=== PATIENT | female | born 1970 | race Caucasian/White ===

== ENCOUNTER 2017-02-19 14:35 | Outpatient (CLI) ==
[2017-02-19 15:17] LABS: BASOPHILS # (AUTO) 0.1 K/uL (0-0.2); EOSINOPHILS % (AUTO) 0.8 % (0.0-7.0); HEMATOCRIT 36.5 % (37.0-47.0); HEMOGLOBIN 12.9 g/dl (12.0-16.0); IMMATURE GRANULOCYTE % (AUTO) 0.2 % (0.0-5.0); LYMPHOCYTES # (AUTO) 1.2 K/uL (0.60-3.4); LYMPHOCYTES % (AUTO) 24.6 (10.0-50.0); MEAN CORPUSCULAR HEMOGLOBIN 31.4 pg (27.0-31.0); MEAN CORPUSCULAR HGB CONC 35.3 (31.8-35.4); MEAN CORPUSCULAR VOLUME 88.8 fl (81.0-99.0); MONOCYTES # (AUTO) 0.4 K/uL (0.4-2.0); MONOCYTES % (AUTO) 8.1 (0-10); NEUTROPHILS # (AUTO) 3.2 K/ul (2.0-6.9); NEUTROPHILS % (AUTO) 65.3; PLATELET COUNT 107 10^3/uL (140-440); RED BLOOD COUNT 4.11 10^6/ul (4.20-5.40); WHITE BLOOD COUNT 4.84 K/ul (4.6-10.2)
[2017-02-19 15:55] LABS: ALBUMIN 3.9 g/dL (3.4-5.0); ALBUMIN/GLOBULIN RATIO 1.11; BILIRUBIN,TOTAL 0.4 mg/dL (0.00-1.20); BUN/CREATININE RATIO 23.45; CALCIUM 9.6 mg/dL (8.2-10.2); CHOL/HDL RATIO 3.3 (4.5-5.5); CREATININE 0.81 mg/dL (0.60-1.30); TOTAL PROTEIN 7.4 g/dL (6.4-8.2)
[2017-02-24 08:02] LABS: HIV ANTIBODIES QUALITATIVE NON REACTIVE (Nonreactive)
[2017-04-20 12:00] VITALS: BMI 27.3
== END 2017-02-19 14:36 | disposition home or self-care (01) ==
LOC: LAB 14:35
PROVIDERS: ATTEND Nurse Practitioner Family
DX: E11.36 Type 2 diabetes mellitus with diabetic cataract (principal); E75.6 Lipid storage disorder, unspecified; N92.6 Irregular menstruation, unspecified; Z11.4 Encounter for screening for human immunodeficiency virus [HIV]; Z11.59 Encounter for screening for other viral diseases
CPT/HCPCS: 36415; 80053; 80061; 80074; 83036; 84439; 84443; 85025; 86701

== ENCOUNTER 2017-06-12 13:19 | Outpatient (CLI) ==
[2017-04-20 12:00] VITALS: BMI 27.3
[2017-06-12 13:36] LABS: BASOPHILS % (AUTO) 0.9 % (0.0-3.0); EOSINOPHILS # (AUTO) 0.1 K/ul (0.0-0.7); EOSINOPHILS % (AUTO) 2.1 % (0.0-7.0); HEMATOCRIT 31.7 % (37.0-47.0); HEMOGLOBIN 11.6 g/dl (12.0-16.0); IMMATURE GRANULOCYTE % (AUTO) 0.2 % (0.0-5.0); LYMPHOCYTES # (AUTO) 1.1 K/uL (0.60-3.4); LYMPHOCYTES % (AUTO) 26.1 (10.0-50.0); MEAN CORPUSCULAR HGB CONC 36.6 (31.8-35.4); MEAN CORPUSCULAR VOLUME 87.6 fl (81.0-99.0); MONOCYTES # (AUTO) 0.4 K/uL (0.4-2.0); MONOCYTES % (AUTO) 8.7 (0-10); NEUTROPHILS # (AUTO) 2.7 K/ul (2.0-6.9); PLATELET COUNT 113 10^3/uL (140-440); RED BLOOD COUNT 3.62 10^6/ul (4.20-5.40); WHITE BLOOD COUNT 4.36 K/ul (4.6-10.2)
[2017-06-12 13:58] LABS: ALBUMIN 3.4 g/dL (3.4-5.0); ANION GAP 14.7; BILIRUBIN,TOTAL 0.46 mg/dL (0.00-1.20); BUN/CREATININE RATIO 17.91; CALCIUM 9.7 mg/dL (8.2-10.2); CHOL/HDL RATIO 3.7 (4.5-5.5); CREATININE 0.67 mg/dL (0.60-1.30); POTASSIUM 3.7 mmol/L (3.5-5.10); TOTAL PROTEIN 6.8 g/dL (6.4-8.2)
== END 2017-06-12 13:20 | disposition home or self-care (01) ==
LOC: LAB 13:19
PROVIDERS: ATTEND Nurse Practitioner Family
DX: E75.6 Lipid storage disorder, unspecified (principal); E11.36 Type 2 diabetes mellitus with diabetic cataract
CPT/HCPCS: 36415; 80053; 80061; 83036; 85025

== ENCOUNTER 2017-07-14 16:07 | Outpatient (CLI) ==
[2017-04-20 12:00] VITALS: BMI 27.3
[2017-07-14 16:23] LABS: BASOPHILS % (AUTO) 1.1 % (0.0-3.0); EOSINOPHILS # (AUTO) 0.1 K/ul (0.0-0.7); EOSINOPHILS % (AUTO) 1.7 % (0.0-7.0); HEMOGLOBIN 12.6 g/dl (12.0-16.0); LYMPHOCYTES % (AUTO) 26.3 (10.0-50.0); MEAN CORPUSCULAR HEMOGLOBIN 31.2 pg (27.0-31.0); MEAN CORPUSCULAR VOLUME 89.1 fl (81.0-99.0); MONOCYTES # (AUTO) 0.3 K/uL (0.4-2.0); MONOCYTES % (AUTO) 9.1 (0-10); NEUTROPHILS # (AUTO) 2.2 K/ul (2.0-6.9); NEUTROPHILS % (AUTO) 61.8; PLATELET COUNT 130 10^3/uL (140-440); RED BLOOD COUNT 4.04 10^6/ul (4.20-5.40); WHITE BLOOD COUNT 3.61 K/ul (4.6-10.2)
[2017-07-14 16:25] LABS: IMMATURE RETIC FRACTION 13.5; RETICULOCYTE % 1.95 %
[2017-07-14 17:00] LABS: FERRITIN 67.49 ng/mL (4.63-204.00)
== END 2017-07-14 16:08 | disposition home or self-care (01) ==
LOC: LAB 16:07
PROVIDERS: ATTEND Nurse Practitioner Family
DX: D64.9 Anemia, unspecified (principal); L02.91 Cutaneous abscess, unspecified
CPT/HCPCS: 36415; 82607; 82728; 83540; 83550; 84466; 85025; 85045; 87070

== ENCOUNTER 2017-09-09 16:11 | Outpatient (CLI) ==
[2017-04-20 12:00] VITALS: BMI 27.3
[2017-09-09 16:18] LABS: BASOPHILS # (AUTO) 0.1 K/uL (0-0.2); BASOPHILS % (AUTO) 1.4 % (0.0-3.0); EOSINOPHILS # (AUTO) 0.1 K/ul (0.0-0.7); EOSINOPHILS % (AUTO) 1.8 % (0.0-7.0); HEMATOCRIT 38.2 % (37.0-47.0); HEMOGLOBIN 13.2 g/dl (12.0-16.0); IMMATURE GRANULOCYTE % (AUTO) 0.2 % (0.0-5.0); LYMPHOCYTES # (AUTO) 1.4 K/uL (0.60-3.4); LYMPHOCYTES % (AUTO) 32.5 (10.0-50.0); MEAN CORPUSCULAR HEMOGLOBIN 30.8 pg (27.0-31.0); MEAN CORPUSCULAR HGB CONC 34.6 (31.8-35.4); MEAN CORPUSCULAR VOLUME 89.3 fl (81.0-99.0); MONOCYTES # (AUTO) 0.4 K/uL (0.4-2.0); MONOCYTES % (AUTO) 10.1 (0-10); NEUTROPHILS # (AUTO) 2.4 K/ul (2.0-6.9); PLATELET COUNT 142 10^3/uL (140-440); RED BLOOD COUNT 4.28 10^6/ul (4.20-5.40); WHITE BLOOD COUNT 4.37 K/ul (4.6-10.2)
[2017-09-09 16:31] LABS: ALBUMIN 3.4 g/dL (3.4-5.0); ALBUMIN/GLOBULIN RATIO 0.85; ANION GAP 15.5; BILIRUBIN,TOTAL 0.48 mg/dL (0.00-1.20); BUN/CREATININE RATIO 21.42; CALCIUM 9.7 mg/dL (8.2-10.2); CHOL/HDL RATIO 4.3 (4.5-5.5); CREATININE 0.7 mg/dL (0.60-1.30); POTASSIUM 3.5 mmol/L (3.5-5.10); TOTAL PROTEIN 7.4 g/dL (6.4-8.2)
== END 2017-09-09 16:12 | disposition home or self-care (01) ==
LOC: LAB 16:11
PROVIDERS: ATTEND Nurse Practitioner Family
DX: E11.36 Type 2 diabetes mellitus with diabetic cataract (principal); E75.6 Lipid storage disorder, unspecified; D64.9 Anemia, unspecified
CPT/HCPCS: 36415; 80053; 80061; 83036; 85025

== ENCOUNTER 2018-01-11 13:29 | Outpatient (CLI) ==
[2017-04-20 12:00] VITALS: BMI 27.3
== END 2018-01-11 13:30 | disposition home or self-care (01) ==
LOC: LAB 13:29
PROVIDERS: ATTEND Nurse Practitioner Family
DX: D64.9 Anemia, unspecified (principal); E11.36 Type 2 diabetes mellitus with diabetic cataract; E75.6 Lipid storage disorder, unspecified
CPT/HCPCS: 36415; 80053; 80061; 83036; 85025

== ENCOUNTER 2018-05-03 11:06 | Outpatient (CLI) ==
[2017-04-20 12:00] VITALS: BMI 27.3
== END 2018-05-03 11:07 | disposition home or self-care (01) ==
LOC: LAB 11:06
PROVIDERS: ATTEND Nurse Practitioner Family
DX: D64.9 Anemia, unspecified (principal); E11.36 Type 2 diabetes mellitus with diabetic cataract; E75.6 Lipid storage disorder, unspecified
CPT/HCPCS: 36415; 80053; 80061; 85025

== ENCOUNTER 2019-05-10 09:15 | Outpatient (CLI) ==
[2017-04-20 12:00] VITALS: BMI 27.3
== END 2019-05-10 09:16 | disposition home or self-care (01) ==
LOC: LAB 09:15
PROVIDERS: ATTEND Nurse Practitioner Family
DX: E11.36 Type 2 diabetes mellitus with diabetic cataract (principal); D64.9 Anemia, unspecified
CPT/HCPCS: 36415; 80053; 83036; 85025

== ENCOUNTER 2022-09-15 05:30 | Inpatient (IN) ==
[2022-09-15] MEDS ORDERED: REGLAN IVP ONE (05:34)
[2022-09-15] MEDS ORDERED: PROTONIX IV IVP STA (05:34)
[2022-09-15] MEDS ORDERED: SODIUM CHLORIDE 1,000 ML IV STA ×2 (05:34→07:42)
--- NOTE | 2022-09-15 05:44 | ED.PDOC ---
General ED Provider: Dr. AFRICA FRIED Chief Complaint: Nausea/Vomiting Stated Complaint: Patient is a 52 year old female who has a history of DM non insulin depended. who comes to the ER with nausea and vomiting with some diarrhea since yesterday. Has had 4 episodes of vomiting today. she is is legall y blind. She was given Zofran by EMS now feels better. Time Seen by Provider: 09/15/22 05:32 Mode of Arrival: Ambulance Information Source: Patient and EMT Primary Care Provider: PAMELLA TORREZ APRN, FNP- Nursing and Triage Documentation Reviewed and Agree: Yes Does patient meet sepsis criteria?: No System Inflammatory Response Syndrome: Not Applicable Sepsis Protocol: For patient's 13 years and over: Temp is 96.8 and below OR 101 and greater Pulse >90 BPM Resp >20/minute Acutely Altered Mental Status Are patient's symptoms suggestive of a new infection, such as: -Pneumonia -Skin, Soft Tissue -Endocarditis -UTI -Bone, Joint Infection -Implantable Device -Acute Abdominal Infection -Wound Infection -Meningitis -Blood Stream Catheter Infection -Unknown GI Complaint Exam Vomiting/Diarrhea Complaint/Exam Onset/Duration: 1 day Episodes of Vomiting over last 24 Hours: 4 Episodes of Diarrhea Over Last 24 Hours: 5 Initial Severity: Severe Current Severity: Moderate Character of Vomiting: Reports Non-bilious Character of Diarrhea: Reports Watery Aggravating: Reports Food Alleviating: Reports None Associated Signs and Symptoms: Denies Dizziness, Light-headedness, Melena, Hematemesis, Fever, Abdominal pain or Cramping Related History: Reports Similar episode Recent Positive Test: No Use of Oral Contraceptives: No Use of Depoprovera: No Compliant With Contraceptive Use: No Surgical Obstruction Risk Factors: Reports None Related Surgical History: Reports None Abdominal Findings: Present None Kussmaul Respirations Present: No Differential Diagnoses: Bowel Obstruction and Viral Gastroenteritis Review of Systems Review Of Systems Constitutional: Reports No symptoms GI: Reports Nausea and Vomiting Neurological: Reports Anxiety All Other Systems: Reviewed and Negative [facility] Medical History (Updated 09/15/22 @ 08:52 by AFRICA FRIED MD) Abnormal TSH Amenorrhea Diabetes mellitus GERD (gastroesophageal reflux disease) Has poorly balanced diet Hyperlipidemia Hypertriglyceridemia Legally blind Mammogram declined Non compliance with medical treatment Patient refused evaluation or treatment Subcutaneous nodule of left upper extremity Family History FATHER Lung cancer Mother No problems noted. Grandfather/Grandmother Diabetes Other Cancer Social History Alcohol intake: never Substance use type: does not use Surgical History (Updated 07/09/20 @ 08:50 by [facility] [place]) History of section Female Reproductive History Menstrual Hx Hysterectomy: Yes Hx Tubal Ligation: Yes Physical Exam Physical Exam Appearance: Reports Ill-appearing Ill-appearing: Moderate Pain Distress: None Eyes: Reports EOMI and Other (non reative pupils, Blind ) ENT: Reports Nose normal and Oropharynx normal Neck: Supple Respiratory: Reports Airway patent and Breath sounds clear Cardiovascular: Reports RRR, Pulses normal and No rub GI/: Reports Soft, Nontender, No masses and Bowel sounds normal Musculoskeletal: Reports Normal strength, ROM intact and No edema Skin: Reports Warm, Dry and Normal color Neurological: Reports Motor intact, Alert and Oriented Psychiatric: Reports Anxious Critical Care Note Critical Care Note Total Critical Care Time (mins): 0 Course Course Hematology/Chemistry: 09/15/22 05:44 09/15/22 05:44 Orders, Labs, Meds: Lab Review 09/15/22 09/15/22 09/15/22 05:44 05:44 05:44 WBC 9.00 RBC 4.98 Hgb 15.5 Hct 43.5 MCV 87.3 MCH 31.1 H MCHC 35.6 H RDW Coeff of Jolene 12.6 Plt Count 151 Immature Gran % (Auto) 0.4 Neut % (Auto) 88.5 H Lymph % (Auto) 8.1 L [place] % (Auto) 2.7 Eos % (Auto) 0.0 Baso % (Auto) 0.3 Neut # (Auto) 8.0 H Lymph # (Auto) 0.7 [place] # (Auto) 0.2 L Eos # (Auto) 0.0 Baso # (Auto) 0.0 Immature Gran # (Auto) 0.0 Puncture Site Base Excess O2 Saturation ABG pH ABG pCO2 ABG pO2 ABG HCO3 ABG Total CO2 Oliverio Test Hemoglobin Oxyhemoglobin Carboxyhemoglobin Total Hemoglobin FiO2 % Sodium 138.5 Potassium 4.03 Chloride 103.6 Carbon Dioxide 16.0 L Anion Gap 22.93 BUN 13.8 Creatinine 0.49 L Estimated GFR (MDRD) 132.00 BUN/Creatinine Ratio 28.16 Glucose 496.4 H Hemoglobin A1c Calcium 9.37 Total Bilirubin 0.69 AST 18.5 ALT 13.2 Alkaline Phosphatase 161.2 H Total Protein 7.51 Albumin 4.30 Globulin 3.21 Albumin/Globulin Ratio 1.33 Amylase 49.1 Lipase 29.8 Urine Color Urine Clarity Urine pH Ur Specific [place] Urine Protein Urine Glucose (UA) Urine Ketones Urine Blood Urine Nitrite Urine Bilirubin Urine Urobilinogen Ur Leukocyte Esterase Urine Microscopic RBC Ur Squamous Epith Cells Urine Mucus Acetone, Qual Trace 09/15/22 09/15/22 09/15/22 05:44 05:45 07:30 WBC RBC Hgb Hct MCV MCH MCHC RDW Coeff of Jolene Plt Count Immature Gran % (Auto) Neut % (Auto) Lymph % (Auto) [place] % (Auto) Eos % (Auto) Baso % (Auto) Neut # (Auto) Lymph # (Auto) [place] # (Auto) Eos # (Auto) Baso # (Auto) Immature Gran # (Auto) Puncture Site Rb Base Excess -9.3 L O2 Saturation 99.6 H ABG pH 7.44 ABG pCO2 22.0 L ABG pO2 175.0 H ABG HCO3 14.9 L ABG Total CO2 15.6 L Oliverio Test + Hemoglobin 1.5 Oxyhemoglobin 95.2 Carboxyhemoglobin 2.1 H Total Hemoglobin 16.3 FiO2 % 21.0 Sodium Potassium Chloride Carbon Dioxide Anion Gap BUN Creatinine Estimated GFR (MDRD) BUN/Creatinine Ratio Glucose Hemoglobin A1c 13.23 H Calcium Total Bilirubin AST ALT Alkaline Phosphatase Total Protein Albumin Globulin Albumin/Globulin Ratio Amylase Lipase Urine Color Yellow Urine Clarity Clear Urine pH 5.5 Ur Specific [place] 1.025 Urine Protein 1+ H Urine Glucose (UA) 2+ H Urine Ketones 4+ Urine Blood Trace-intact H Urine Nitrite Negative Urine Bilirubin Negative Urine Urobilinogen 0.2 Ur Leukocyte Esterase Negative Urine Microscopic RBC 0-2 Ur Squamous Epith Cells Not present Urine Mucus Trace Acetone, Qual Orders Category Date Time Status ABG DRAW REQUEST Stat CARDIO 09/15/22 05:44 Completed ACTIVITY .Up With Assistance CARE 09/15/22 08:43 Active BLOOD GLUCOSE MONITORING (MED/SURG) Q1HR CARE 09/15/22 08:32 Active DIABETIC TEACHING ONCE CARE 09/15/22 08:43 Active INTAKE & OUTPUT Q8HR CARE 09/15/22 08:43 Active REMINDER: BMP Q4hrs Until Anion Gap < 12 Q4HR CARE 09/15/22 08:43 Active REMINDER: BMP Q8HRS Once Anion Gap <12 PRN CARE 09/15/22 08:43 Active REMINDER: Call Provider if K < 3.3 meq/L PRN CARE 09/15/22 08:43 Active REMINDER: Hold IV Fluids with KCL PRN CARE 09/15/22 08:43 Active REMINDER: Print DKA Nursing Protocol PRN CARE 09/15/22 08:43 Active TELEMETRY MONITORING TELE CARE 09/15/22 08:43 Active VITAL SIGNS Q4HR CARE 09/15/22 08:43 Active NOTHING BY MOUTH DIETARY 09/15/22 Lunch Ordered CONSULT LOW VOLTAGE ELECTRICIAN ONCE LOW VOLTAGE ELECTRICIAN 09/15/22 08:43 Active ED IV/MEDIPORT/POWERPORT .ONCE EMERGENCY 09/15/22 05:34 Active ABG COOX Stat LAB 09/15/22 05:45 Completed ACETONE, QUALITATIVE Stat LAB 09/15/22 05:44 Completed AMYLASE Stat LAB 09/15/22 05:44 Completed AMYLASE Stat LAB 09/15/22 08:43 Ordered CBC W/ AUTO DIFF Stat LAB 09/15/22 05:44 Completed COMPREHENSIVE METABOLIC PANEL Stat LAB 09/15/22 05:44 Completed DRUG SCREEN, URINE, RAPID Stat LAB 09/15/22 08:43 Uncollected HEMOGLOBIN A1C Stat LAB 09/15/22 05:44 Completed LIPASE Stat LAB 09/15/22 05:44 Completed LIPASE Stat LAB 09/15/22 08:43 Ordered MAGNESIUM Stat LAB 09/15/22 08:43 Ordered PHOSPHORUS Stat LAB 09/15/22 08:43 Ordered SARS COV-2 RNA RAPID GILMA Stat LAB 09/15/22 08:35 Received URINALYSIS C & S IF INDICATED Stat LAB 09/15/22 07:30 Completed 0.9 % Sodium Chloride [Saline Flush] MEDS 09/15/22 05:34 Active 1 syr IVF PRN PRN Insulin Regular in 0.9 % NaCl [Myxredlin 100 Unit/100 MEDS 09/15/22 09:00 Active ml Bag] 100 unit in 100 ml IV TITRATION Insulin Regular, Human [Humulin R] MEDS 09/15/22 08:16 Discontinued 8 unit IVP ONCE STA Metoclopramide HCl [Reglan] MEDS 09/15/22 11:00 Ordered 10 mg IVP ACHS Metoclopramide HCl [Reglan] MEDS 09/15/22 05:34 Discontinued 10 mg IVP ONCE ONE POTASSIUM CHLORIDE/D5-0.45NACL @ 125 MLS/HR(1000ml) MEDS 09/15/22 08:50 Ordered Potassium Chloride/D5-0.45NACL [D5%-1/2Ns-KCl 10 Meq/l IV Marichuy] 1,000 ml IV 125 mls/hr Pantoprazole Sodium [Protonix IV] MEDS 09/15/22 05:34 Discontinued 40 mg IVP ONCE STA Sodium Chloride 0.9% [Sodium Chloride] 1,000 ml MEDS 09/15/22 05:34 Discontinu ed IV BOLUS Sodium Chloride 0.9% [Sodium Chloride] 1,000 ml MEDS 09/15/22 07:42 Discontinued IV BOLUS Sodium Chloride 0.9% [Sodium Chloride] 1,000 ml MEDS 09/15/22 08:43 Active IV BOLUS Medications Generic Name Dose Route Start Last Admin Trade Name Freq PRN Reason Stop Dose Admin INSULIN REGULAR IN 0.9 % NACL 100 unit in 100 mls @ 8.33 mls/hr 09/15/22 09:00 Myxredlin 100 Unit/100 Ml Bag IV TITRATION KENAN Protocol 0.1 UNIT/KG/HR Sodium Chloride 1,000 mls @ 1,000 mls/hr 09/15/22 08:43 Sodium Chloride IV 09/15/22 09:42 BOLUS ONE Metoclopramide HCl 10 mg 09/15/22 11:00 Metoclopramide Hcl 10 Mg/2 Ml IVP ACHS KENAN Sodium Chloride 1 syr 09/15/22 05:34 0.9% Sodium Chloride 10 Ml Disp.Syrin IVF PRN PRN To flush IV Discontinued Medications Generic Name Dose Route Start Last Admin Trade Name Freq PRN Reason Stop Dose Admin Sodium Chloride 1,000 mls @ 1,000 mls/hr 09/15/22 05:34 09/15/22 06:03 Sodium Chloride IV 09/15/22 06:33 1,000 mls/hr BOLUS STA Administration Sodium Chloride 1,000 mls @ 1,000 mls/hr 09/15/22 07:42 09/15/22 07:57 Sodium Chloride IV 09/15/22 08:41 1,000 mls/hr BOLUS STA Administration Insulin Human Regular 8 unit 09/15/22 08:16 09/15/22 08:35 Insulin Regular, Human 100 Unit/Ml (3ml) Vial 0.1 unit/kg (8 unit) 09/15/22 08:17 8 unit IVP Administration ONCE STA Metoclopramide HCl 10 mg 09/15/22 05:34 09/15/22 06:15 Metoclopramide Hcl 10 Mg/2 Ml IVP 09/15/22 05:35 10 mg ONCE ONE Administration Pantoprazole Sodium 40 mg 09/15/22 05:34 09/15/22 06:14 Pantoprazole Sodium 40 Mg Vial IVP 09/15/22 05:35 40 mg ONCE STA Administration Vital Signs: Temp Pulse Resp BP Pulse Ox 09/15/22 05:30 97.4 F L 106 H 18 136/88 96 Discharge Plan Discharge Patient Disposition: ADMITTED INPATIENT Discharge Problem: DKA (diabetic ketoacidosis), Gastroenteritis, Nausea, Vomiting Did you review [place] EXECUTOR OF ESTATE?: Not Applicable ED Provider: AFRICA FRIED Condition: Fair Physician Progress Note: []
[2022-09-15 05:51] LABS: BASOPHILS % (AUTO) 0.3 % (0.0-3.0); HEMATOCRIT 43.5 % (37.0-47.0); HEMOGLOBIN 15.5 g/dl (12.0-16.0); IMMATURE GRANULOCYTE % (AUTO) 0.4 % (0.0-5.0); LYMPHOCYTES # (AUTO) 0.7 K/uL (0.60-3.4); LYMPHOCYTES % (AUTO) 8.1 (10.0-50.0); MEAN CORPUSCULAR HEMOGLOBIN 31.1 pg (27.0-31.0); MEAN CORPUSCULAR HGB CONC 35.6 (31.8-35.4); MEAN CORPUSCULAR VOLUME 87.3 fl (81.0-99.0); MONOCYTES # (AUTO) 0.2 K/uL (0.4-2.0); MONOCYTES % (AUTO) 2.7 (0-10); NEUTROPHILS % (AUTO) 88.5 % (42.2-75.2); PLATELET COUNT 151 10^3/uL (140-440); RDW COEFFICIENT OF VARIATION 12.6 % (11.6-14.8); RED BLOOD COUNT 4.98 10^6/ul (4.20-5.40)
[2022-09-15 05:56] LABS: ABG O2 HGB 95.2 % (95-100); ABG PH 7.44 (7.35-7.45); BEecf -9.3 (-2.0-3.0); COHb 2.1 (0.5-1.5); HCO3 14.9 (21-28); MetHb 1.5 (0-1.5); TCO2 15.6 (19-24); sO2 99.6 % (94-98); tHb 16.3 g/dl (11.7-17.4)
[2022-09-15 06:02] LABS: ALANINE AMINOTRANSFERASE 13.2 U/L (0-35); ALBUMIN 4.3 g/dL (3.5-5.0); ALKALINE PHOSPHATASE 161.2 U/L (38-126); AMYLASE 49.1 U/L (30-110); ASPARTATE AMINO TRANSFERASE 18.5 U/L (14-36); BILIRUBIN,TOTAL 0.69 mg/dL (0.2-1.3); BLOOD UREA NITROGEN 13.8 mg/dL (7-17); CALCIUM 9.37 mg/dL (8.4-10.2); CREATININE 0.49 mg/dL (0.60-1.30); GLUCOSE 496.4 mg/dL (74-106); LIPASE 29.8 U/L (23-300); POTASSIUM 4.03 mmol/L (3.5-5.1); SODIUM 138.5 mmol/L (134.5-145); TOTAL PROTEIN 7.51 g/dL (6.3-8.2)
[2022-09-15 06:04] LABS: CHLORIDE 103.6 mmol/L (98-107)
[2022-09-15 07:38] LABS: BILIRUBIN,URINE Negative (NEGATIVE); CLARITY,URINE Clear (CLEAR); COLOR,URINE Yellow (YELLOW); GLUCOSE, URINE (UA) 2+ (NEGATIVE); KETONES,URINE 4+ (NEGATIVE); LEUKOCYTE ESTERASE ,URINE Negative (NEGATIVE); NITRITE,URINE Negative (NEGATIVE); PH,URINE 5.5 (5-9); PROTEIN,URINE 1+ (NEGATIVE); URINE, BLOOD Trace-intact (NEGATIVE); UROBILINOGEN,URINE 0.2 (0.2)
[2022-09-15 07:51] LABS: SQUAMOUS EPITHELIAL CELL,UR NOT PRESENT (0-5)
[2022-09-15 07:52] LABS: MUCUS,URINE TRACE (NOT PRESENT); URINE RBC, MICROSCOPIC 0-2 (0-2)
[2022-09-15] MEDS ORDERED: HUMULIN R IVP STA (08:16)
[2022-09-15] MEDS ORDERED: SODIUM CHLORIDE 1,000 ML IV ONE (08:43)
[2022-09-15] MEDS ORDERED: D5%-1/2NS-KCL 10 MEQ/L IV SOL 1,000 ML IV STA (08:50)
[2022-09-15] MEDS: MYXREDLIN 100 UNIT/100 ML BAG 100 UNIT/100 ML PLAST..BAG IV SCH (08:54)
[2022-09-15 09:00] LABS: AMYLASE 55.7 U/L (30-110); LIPASE 27.8 U/L (23-300); MAGNESIUM 1.75 mg/dL (1.6-2.3); PHOSPHORUS 4.95 mg/dL (2.5-4.5)
[2022-09-15 09:46] LABS: AMPHETAMINE SCREEN,URINE NEGATIVE (NEGATIVE); BARBITURATE SCREEN,URINE NEGATIVE (NEGATIVE); BENZODIAZEPINES SCREEN,URINE NEGATIVE (NEGATIVE); CANNABINOID SCREEN,URINE NEGATIVE (NEGATIVE); COCAIN SCREEN,URINE NEGATIVE (NEGATIVE); METHADONE URINE SCREEN NEGATIVE (NEGATIVE); METHAMPHETAMINES SCREEN,URINE NEGATIVE (NEGATIVE); OPIATE SCREEN,URINE NEGATIVE (NEGATIVE); OXYCODONE URINE SCREEN NEGATIVE (NEGATIVE); PHENCYCLIDINE SCREEN,URINE NEGATIVE (NEGATIVE); PROPOXYPHENE URINE SCREEN NEGATIVE (NEGATIVE); TRICYCLIC ANTIDEPRESSANTS URIN NEGATIVE (NEGATIVE)
[2022-09-15 11:02] VITALS: BMI 28.0
[2022-09-15] MEDS: HUMULIN R SUBCUT PRN ×3 (11:52→16:32)
[2022-09-15] MEDS: REGLAN IVP SCH ×3 (13:05→21:13)
[2022-09-15] MEDS: LANTUS SUBCUT SCH (16:40)
[2022-09-16 05:41] LABS: ALBUMIN 3.44 g/dL (3.5-5.0); ALKALINE PHOSPHATASE 109.7 U/L (38-126); ASPARTATE AMINO TRANSFERASE 14.4 U/L (14-36); BILIRUBIN,TOTAL 0.53 mg/dL (0.2-1.3); BLOOD UREA NITROGEN 7.7 mg/dL (7-17); CALCIUM 8.81 mg/dL (8.4-10.2); CARBON DIOXIDE 22.5 mmol/L (22-30.0); CHLORIDE 104.9 mmol/L (98-107); CREATININE 0.46 mg/dL (0.60-1.30); GLUCOSE 255.5 mg/dL (74-106); POTASSIUM 3.61 mmol/L (3.5-5.1); SODIUM 138.3 mmol/L (134.5-145); TOTAL PROTEIN 6.15 g/dL (6.3-8.2)
[2022-09-16] MEDS: REGLAN IVP SCH ×2 (06:18→13:04)
[2022-09-16] MEDS: HUMULIN R SUBCUT PRN ×2 (06:49→11:41)
[2022-09-16] MEDS ORDERED: GLUCOPHAGE PO SCH (08:30)
[2022-09-16] MEDS: LANTUS SUBCUT SCH (09:23)
[2022-09-16] MEDS: MYXREDLIN 100 UNIT/100 ML BAG 100 UNIT/100 ML PLAST..BAG IV SCH (10:06)
[2022-09-16 14:23] VITALS: BP 138/86; TEMP 98.2
--- NOTE | 2022-09-17 08:02 | PCM.DC ---
Final Diagnosis: DKA Gastroenteritis Poorly controlled Diabetes Physical Exam Appearance: Well-appearing Ill-appearing: None Pain Distress: None Eyes: Other (legaly blind ) ENT: Nose normal Neck: Not Examined Respiratory: Airway patent, Breath sounds clear and Breath sounds equal Cardiovascular: RRR, Pulses normal, No rub and No murmur GI/: Soft, Nontender, No masses and Bowel sounds normal Musculoskeletal: Normal strength, ROM intact and No edema Skin: Warm, Dry and Normal color Neurological: Motor intact Psychiatric: Affect appropriate and Mood appropriate (1) DKA (diabetic ketoacidosis): Status: Acute Code(s): E11.10 - Type 2 diabetes mellitus with ketoacidosis without coma SNOMED Code(s): 786627957 Qualifiers: Diabetes mellitus complication detail: without coma Diabetes mellitus type: type 2 Qualified Code(s): E11.10 - Type 2 diabetes mellitus with ketoacidosis without coma (2) Gastroenteritis: Status: Acute Code(s): K52.9 - Noninfective gastroenteritis and colitis, unspecified SNOMED Code(s): 34042993 (3) Nausea: Status: Acute Code(s): R11.0 - Nausea SNOMED Code(s): 226029725 (4) Vomiting: Status: Acute Code(s): R11.10 - Vomiting, unspecified SNOMED Code(s): 224283011 Reason for Hospitalization: DKA, Gastroenteritis, Nausea and Voting. Prognosis/Condition at Discharge: Condition stable with blood glucose fair, Diarrhea resolved and tolerated Metformin. Medications at Discharge: Metformin 500 mg Lab/Diagnostics: Comprehensive Lab Summary 09/15/22 09/15/22 09/15/22 Range/Units 05:44 05:44 05:44 WBC 9.00 (4.6-10.2) K/ul RBC 4.98 (4.20-5.40) 10^6/ul Hgb 15.5 (12.0-16.0) g/dl Hct 43.5 (37.0-47.0) % MCV 87.3 (81.0-99.0) fl MCH 31.1 H (27.0-31.0) pg MCHC 35.6 H (31.8-35.4) RDW Coeff of Jolene 12.6 (11.6-14.8) % Plt Count 151 (140-440) 10^3/uL Immature Gran % (Auto) 0.4 (0.0-5.0) % Neut % (Auto) 88.5 H (42.2-75.2) % Lymph % (Auto) 8.1 L (10.0-50.0) [place] % (Auto) 2.7 (0-10) Eos % (Auto) 0.0 (0.0-7.0) % Baso % (Auto) 0.3 (0.0-3.0) % Neut # (Auto) 8.0 H (2.0-6.9) K/ul Lymph # (Auto) 0.7 (0.60-3.4) K/uL [place] # (Auto) 0.2 L (0.4-2.0) K/uL Eos # (Auto) 0.0 (0.0-0.7) K/ul Baso # (Auto) 0.0 (0-0.2) K/uL Immature Gran # (Auto) 0.0 (0.0-1.0) Puncture Site Base Excess (-2.0-3.0) O2 Saturation (94-98) % ABG pH (7.35-7.45) ABG pCO2 (35-45) mmHg ABG pO2 (85-100) mmHg ABG HCO3 (21-28) ABG Total CO2 (19-24) Oliverio Test Hemoglobin (0-1.5) Oxyhemoglobin (95-100) % Carboxyhemoglobin (0.5-1.5) Total Hemoglobin (11.7-17.4) g/dl FiO2 % % Sodium 138.5 (134.5-145) mmol/L Potassium 4.03 (3.5-5.1) mmol/L Chloride 103.6 (98-107) mmol/L Carbon Dioxide 16.0 L (22-30.0) mmol/L Anion Gap 22.93 BUN 13.8 (7-17) mg/dL Creatinine 0.49 L (0.60-1.30) mg/dL Estimated GFR (MDRD) 132.00 mL/min BUN/Creatinine Ratio 28.16 Glucose 496.4 H (74-106) mg/dL Hemoglobin A1c (4.0-6.0) Calcium 9.37 (8.4-10.2) mg/dL Phosphorus (2.5-4.5) mg/dL Magnesium (1.6-2.3) mg/dL Total Bilirubin 0.69 (0.2-1.3) mg/dL AST 18.5 (14-36) U/L ALT 13.2 (0-35) U/L Alkaline Phosphatase 161.2 H (38-126) U/L Total Protein 7.51 (6.3-8.2) g/dL Albumin 4.30 (3.5-5.0) g/dL Globulin 3.21 Albumin/Globulin Ratio 1.33 Amylase 49.1 (30-110) U/L Lipase 29.8 (23-300) U/L Urine Color (YELLOW) Urine Clarity (CLEAR) Urine pH (5-9) Ur Specific [place] (1.005-1.030) Urine Protein (NEGATIVE) Urine Glucose (UA) (NEGATIVE) Urine Ketones (NEGATIVE) Urine Blood (NEGATIVE) Urine Nitrite (NEGATIVE) Urine Bilirubin (NEGATIVE) Urine Urobilinogen (0.2) Ur Leukocyte Esterase (NEGATIVE) Urine Microscopic RBC (0-2) Ur Squamous Epith Cells (0-5) Urine Mucus (NOT PRESENT) Urine Opiates Screen (NEGATIVE) Ur Oxycodone Screen (NEGATIVE) Urine Methadone Screen (NEGATIVE) Ur Propoxyphene Screen (NEGATIVE) Ur Barbiturates Screen (NEGATIVE) U Tricyclic Antidepress (NEGATIVE) Ur Phencyclidine Scrn (NEGATIVE) Ur Amphetamine Screen (NEGATIVE) U Methamphetamines Scrn (NEGATIVE) U Benzodiazepines Scrn (NEGATIVE) Urine Cocaine Screen (NEGATIVE) U Cannabinoids Screen (NEGATIVE) Acetone, Qual Trace (NONE) SARS CoV-2 RNA Rapid GILMA (NEGATIVE) 09/15/22 09/15/22 09/15/22 Range/Units 05:44 05:45 07:30 WBC (4.6-10.2) K/ul RBC (4.20-5.40) 10^6/ul Hgb (12.0-16.0) g/dl Hct (37.0-47.0) % MCV (81.0-99.0) fl MCH (27.0-31.0) pg MCHC (31.8-35.4) RDW Coeff of Jolene (11.6-14.8) % Plt Count (140-440) 10^3/uL Immature Gran % (Auto) (0.0-5.0) % Neut % (Auto) (42.2-75.2) % Lymph % (Auto) (10.0-50.0) [place] % (Auto) (0-10) Eos % (Auto) (0.0-7.0) % Baso % (Auto) (0.0-3.0) % Neut # (Auto) (2.0-6.9) K/ul Lymph # (Auto) (0.60-3.4) K/uL [place] # (Auto) (0.4-2.0) K/uL Eos # (Auto) (0.0-0.7) K/ul Baso # (Auto) (0-0.2) K/uL Immature Gran # (Auto) (0.0-1.0) Puncture Site Rb Base Excess -9.3 L (-2.0-3.0) O2 Saturation 99.6 H (94-98) % ABG pH 7.44 (7.35-7.45) ABG pCO2 22.0 L (35-45) mmHg ABG pO2 175.0 H (85-100) mmHg ABG HCO3 14.9 L (21-28) ABG Total CO2 15.6 L (19-24) Oliverio Test + Hemoglobin 1.5 (0-1.5) Oxyhemoglobin 95.2 (95-100) % Carboxyhemoglobin 2.1 H (0.5-1.5) Total Hemoglobin 16.3 (11.7-17.4) g/dl FiO2 % 21.0 % Sodium (134.5-145) mmol/L Potassium (3.5-5.1) mmol/L Chloride (98-107) mmol/L Carbon Dioxide (22-30.0) mmol/L Anion Gap BUN (7-17) mg/dL Creatinine (0.60-1.30) mg/dL Estimated GFR (MDRD) mL/min BUN/Creatinine Ratio Glucose (74-106) mg/dL Hemoglobin A1c 13.23 H (4.0-6.0) Calcium (8.4-10.2) mg/dL Phosphorus (2.5-4.5) mg/dL Magnesium (1.6-2.3) mg/dL Total Bilirubin (0.2-1.3) mg/dL AST (14-36) U/L ALT (0-35) U/L Alkaline Phosphatase (38-126) U/L Total Protein (6.3-8.2) g/dL Albumin (3.5-5.0) g/dL Globulin Albumin/Globulin Ratio Amylase (30-110) U/L Lipase (23-300) U/L Urine Color Yellow (YELLOW) Urine Clarity Clear (CLEAR) Urine pH 5.5 (5-9) Ur Specific [place] 1.025 (1.005-1.030) Urine Protein 1+ H (NEGATIVE) Urine Glucose (UA) 2+ H (NEGATIVE) Urine Ketones 4+ (NEGATIVE) Urine Blood Trace-intact H (NEGATIVE) Urine Nitrite Negative (NEGATIVE) Urine Bilirubin Negative (NEGATIVE) Urine Urobilinogen 0.2 (0.2) Ur Leukocyte Esterase Negative (NEGATIVE) Urine Microscopic RBC 0-2 (0-2) Ur Squamous Epith Cells Not present (0-5) Urine Mucus Trace (NOT PRESENT) Urine Opiates Screen (NEGATIVE) Ur Oxycodone Screen (NEGATIVE) Urine Methadone Screen (NEGATIVE) Ur Propoxyphene Screen (NEGATIVE) Ur Barbiturates Screen (NEGATIVE) U Tricyclic Antidepress (NEGATIVE) Ur Phencyclidine Scrn (NEGATIVE) Ur Amphetamine Screen (NEGATIVE) U Methamphetamines Scrn (NEGATIVE) U Benzodiazepines Scrn (NEGATIVE) Urine Cocaine Screen (NEGATIVE) U Cannabinoids Screen (NEGATIVE) Acetone, Qual (NONE) SARS CoV-2 RNA Rapid GILMA (NEGATIVE) 09/15/22 09/15/22 09/15/22 Range/Units 07:30 08:35 08:43 WBC (4.6-10.2) K/ul RBC (4.20-5.40) 10^6/ul Hgb (12.0-16.0) g/dl Hct (37.0-47.0) % MCV (81.0-99.0) fl MCH (27.0-31.0) pg MCHC (31.8-35.4) RDW Coeff of Jolene (11.6-14.8) % Plt Count (140-440) 10^3/uL Immature Gran % (Auto) (0.0-5.0) % Neut % (Auto) (42.2-75.2) % Lymph % (Auto) (10.0-50.0) [place] % (Auto) (0-10) Eos % (Auto) (0.0-7.0) % Baso % (Auto) (0.0-3.0) % Neut # (Auto) (2.0-6.9) K/ul Lymph # (Auto) (0.60-3.4) K/uL [place] # (Auto) (0.4-2.0) K/uL Eos # (Auto) (0.0-0.7) K/ul Baso # (Auto) (0-0.2) K/uL Immature Gran # (Auto) (0.0-1.0) Puncture Site Base Excess (-2.0-3.0) O2 Saturation (94-98) % ABG pH (7.35-7.45) ABG pCO2 (35-45) mmHg ABG pO2 (85-100) mmHg ABG HCO3 (21-28) ABG Total CO2 (19-24) Oliverio Test Hemoglobin (0-1.5) Oxyhemoglobin (95-100) % Carboxyhemoglobin (0.5-1.5) Total Hemoglobin (11.7-17.4) g/dl FiO2 % % Sodium (134.5-145) mmol/L Potassium (3.5-5.1) mmol/L Chloride (98-107) mmol/L Carbon Dioxide (22-30.0) mmol/L Anion Gap BUN (7-17) mg/dL Creatinine (0.60-1.30) mg/dL Estimated GFR (MDRD) mL/min BUN/Creatinine Ratio Glucose (74-106) mg/dL Hemoglobin A1c (4.0-6.0) Calcium (8.4-10.2) mg/dL Phosphorus 4.95 H (2.5-4.5) mg/dL Magnesium 1.75 (1.6-2.3) mg/dL Total Bilirubin (0.2-1.3) mg/dL AST (14-36) U/L ALT (0-35) U/L Alkaline Phosphatase (38-126) U/L Total Protein (6.3-8.2) g/dL Albumin (3.5-5.0) g/dL Globulin Albumin/Globulin Ratio Amylase 55.7 (30-110) U/L Lipase 27.8 (23-300) U/L Urine Color (YELLOW) Urine Clarity (CLEAR) Urine pH (5-9) Ur Specific [place] (1.005-1.030) Urine Protein (NEGATIVE) Urine Glucose (UA) (NEGATIVE) Urine Ketones (NEGATIVE) Urine Blood (NEGATIVE) Urine Nitrite (NEGATIVE) Urine Bilirubin (NEGATIVE) Urine Urobilinogen (0.2) Ur Leukocyte Esterase (NEGATIVE) Urine Microscopic RBC (0-2) Ur Squamous Epith Cells (0-5) Urine Mucus (NOT PRESENT) Urine Opiates Screen Negative (NEGATIVE) Ur Oxycodone Screen Negative (NEGATIVE) Urine Methadone Screen Negative (NEGATIVE) Ur Propoxyphene Screen Negative (NEGATIVE) Ur Barbiturates Screen Negative (NEGATIVE) U Tricyclic Antidepress Negative (NEGATIVE) Ur Phencyclidine Scrn Negative (NEGATIVE) Ur Amphetamine Screen Negative (NEGATIVE) U Methamphetamines Scrn Negative (NEGATIVE) U Benzodiazepines Scrn Negative (NEGATIVE) Urine Cocaine Screen Negative (NEGATIVE) U Cannabinoids Screen Negative (NEGATIVE) Acetone, Qual (NONE) SARS CoV-2 RNA Rapid GILMA Negative (NEGATIVE) 09/16/22 09/16/22 Range/Units 04:43 04:43 WBC (4.6-10.2) K/ul RBC (4.20-5.40) 10^6/ul Hgb (12.0-16.0) g/dl Hct (37.0-47.0) % MCV (81.0-99.0) fl MCH (27.0-31.0) pg MCHC (31.8-35.4) RDW Coeff of Jolene (11.6-14.8) % Plt Count (140-440) 10^3/uL Immature Gran % (Auto) (0.0-5.0) % Neut % (Auto) (42.2-75.2) % Lymph % (Auto) (10.0-50.0) [place] % (Auto) (0-10) Eos % (Auto) (0.0-7.0) % Baso % (Auto) (0.0-3.0) % Neut # (Auto) (2.0-6.9) K/ul Lymph # (Auto) (0.60-3.4) K/uL [place] # (Auto) (0.4-2.0) K/uL Eos # (Auto) (0.0-0.7) K/ul Baso # (Auto) (0-0.2) K/uL Immature Gran # (Auto) (0.0-1.0) Puncture Site Base Excess (-2.0-3.0) O2 Saturation (94-98) % ABG pH (7.35-7.45) ABG pCO2 (35-45) mmHg ABG pO2 (85-100) mmHg ABG HCO3 (21-28) ABG Total CO2 (19-24) Oliverio Test Hemoglobin (0-1.5) Oxyhemoglobin (95-100) % Carboxyhemoglobin (0.5-1.5) Total Hemoglobin (11.7-17.4) g/dl FiO2 % % Sodium 138.3 (134.5-145) mmol/L Potassium 3.61 (3.5-5.1) mmol/L Chloride 104.9 (98-107) mmol/L Carbon Dioxide 22.5 (22-30.0) mmol/L Anion Gap 14.51 BUN 7.7 (7-17) mg/dL Creatinine 0.46 L (0.60-1.30) mg/dL Estimated GFR (MDRD) 142.00 mL/min BUN/Creatinine Ratio 16.73 Glucose 255.5 H D (74-106) mg/dL Hemoglobin A1c (4.0-6.0) Calcium 8.81 (8.4-10.2) mg/dL Phosphorus (2.5-4.5) mg/dL Magnesium (1.6-2.3) mg/dL Total Bilirubin 0.53 (0.2-1.3) mg/dL AST 14.4 (14-36) U/L ALT 10.0 (0-35) U/L Alkaline Phosphatase 109.7 D (38-126) U/L Total Protein 6.15 L (6.3-8.2) g/dL Albumin 3.44 L (3.5-5.0) g/dL Globulin 2.71 Albumin/Globulin Ratio 1.26 Amylase (30-110) U/L Lipase (23-300) U/L Urine Color (YELLOW) Urine Clarity (CLEAR) Urine pH (5-9) Ur Specific [place] (1.005-1.030) Urine Protein (NEGATIVE) Urine Glucose (UA) (NEGATIVE) Urine Ketones (NEGATIVE) Urine Blood (NEGATIVE) Urine Nitrite (NEGATIVE) Urine Bilirubin (NEGATIVE) Urine Urobilinogen (0.2) Ur Leukocyte Esterase (NEGATIVE) Urine Microscopic RBC (0-2) Ur Squamous Epith Cells (0-5) Urine Mucus (NOT PRESENT) Urine Opiates Screen (NEGATIVE) Ur Oxycodone Screen (NEGATIVE) Urine Methadone Screen (NEGATIVE) Ur Propoxyphene Screen (NEGATIVE) Ur Barbiturates Screen (NEGATIVE) U Tricyclic Antidepress (NEGATIVE) Ur Phencyclidine Scrn (NEGATIVE) Ur Amphetamine Screen (NEGATIVE) U Methamphetamines Scrn (NEGATIVE) U Benzodiazepines Scrn (NEGATIVE) Urine Cocaine Screen (NEGATIVE) U Cannabinoids Screen (NEGATIVE) Acetone, Qual None (NONE) SARS CoV-2 RNA Rapid GILMA (NEGATIVE) Education Provided to Patient and Family: on Diabetic diet and insulin administration. Follow-ups: with PCP as soon as possible for medication adjustments. Education and on going instructions, Discharge Disposition: Home (with Help from Daughter and Boyfriend ) Hospital Course: Patient is a 52 year old poorly controlled blind patient who was admitted from the ER after reporting nausea, vomiting and Diarrhea for few days. She missed her last PCP Apt. She was found to be in DKA and dehydrated, She was hydrated w ith IV fluids and given Medications for Nausea and vomiting. She was stared on insulin drip until her Anion gap was less than 12 then placed on Lantus and sliding scale insulin. Metformin was started since she had only reported Diarrhea on a larger dose in the past. Plan: Patient and and family educated several times while admitted Start Insulin Lantus 10 units every morning or Evening whatever is convenient for family Resume Metformin 500mg daily titrate slowly, due to history of diarrhea with goal of titrating to 1000mg bid. Start Meal time Insulin 3 units Prescription written for Glucometer, Test Strips and Lancets since she reported loosing them during a move.
== END 2022-09-16 15:15 | disposition home or self-care (01) | DRG 639 ==
LOC: ED 05:30 → MEDSURG A 10:23
PROVIDERS: ADMIT Emergency Medicine; ATTEND Internal Medicine Geriatric Medicine
DX: R11.10 Vomiting, unspecified; E78.5 Hyperlipidemia, unspecified; Z79.4 Long term (current) use of insulin; Z20.822 Contact with and (suspected) exposure to COVID-19; H54.8 Legal blindness, as defined in USA; E86.0 Dehydration; R11.0 Nausea; E78.1 Pure hyperglyceridemia; K52.9 Noninfective gastroenteritis and colitis, unspecified; Z79.899 Other long term (current) drug therapy; E11.10 Type 2 diabetes mellitus with ketoacidosis without coma; Z51.81 Encounter for therapeutic drug level monitoring; E11.65 Type 2 diabetes mellitus with hyperglycemia